=== PATIENT | male | born 1965 | race Caucasian/White ===

== ENCOUNTER 2024-11-18 08:53 | Emergency (ER) | payer BC, SELFPAY ==
[2024-11-18 08:59] VITALS: BP 170/90
[2024-11-18 09:29] VITALS: BMI 32.1
--- NOTE | 2024-11-18 09:38 | ED.GENMED ---
History of Present Illness
General
Chief Complaint: Fever
Source: patient and spouse
Exam Limitations: none
Time Seen by Provider: 11/18/24 09:25
Nursing documentation reviewed up to this point in time: agreed with
History of Present Illness
History of Present Illness:
59-year-old male past medical history of hypertension presenting to the emergency department today with concerns of sore throat productive cough upper respiratory symptoms as well as fever over the past 24 hours or so. COVID test negative at home.
Denies any specific chest pain but has been feeling very short of breath and very weak and tired. Denies any nausea vomiting.
Past History
Past History
ED Past Medical History: None
ED Past Surgical History: None
Social History
Tobacco: Non-smoker
Living: with family
Employment: Employed
Review of Systems
Review of Systems
Allergies reviewed?: Yes
All Other Systems: ROS reviewed and negative except as documented in HPI and ROS
Phy Exam
Physical Exam
Physical Exam:
GENERAL: Alert , in no apparent distress
EYE: pupils equal and reactive
NECK: Supple, no significant adenopathy.
ENT: o/p clr, mmm.
CARDIAC: Regular rate and rhythm .
LUNGS: Rhonchi to the left lungs right sided clear
ABDOMEN: Soft, without focal tenderness, no r/g, no cvat
NEUROLOGICAL: Alert and oriented, no focal neuro deficits
SKIN: Warm and dry, skin intact.
MUSCULOSKELETAL: No edema, well perfused.
PSYCH: Normal and appropriate interaction.
Sepsis
Sepsis Screening
Sepsis Assessment: Sepsis Ruled Out
Sepsis Screen
Sepsis Screen: Sepsis Ruled Out
Date: 11/18/24
Time: 13:45
Course
Orders/Labs/Results
Orders:
Orders
11/18/24 09:20
IV Insert/Care/Rem.- Treatment PRN
CR Chest - 2 Views Urgent
Comment:
Reason For Exam: suspected infection
11/18/24 09:36
COVID-19 Antigen Urgent
Source: Nasal Swab
Complete Blood Count/With Diff Urgent
Comprehensive Metabolic Panel Urgent
Lactic Acid Q4H
Comment: ON ICE, CANCEL 2ND ORDER IF FIRST LACTIC ACID LEVEL <2
Influenza A+B Rapid Molecular Urgent
JAMIE Source: Nasal Swab
Specimen Description:
Acetaminophen [Tylenol] 1,000 mg PO NOW STA
11/18/24 10:04
Azithromycin 500 mg/250 ml [Zithromax Infusion] 500 mg in 250 ml IV NOW
CefTRIAXone [Rocephin] 1,000 mg IV NOW STA
Oseltamivir Phosphate [Tamiflu] 75 mg PO NOW STA
11/18/24 11:30
Ketorolac [Toradol] 15 mg .ROUTE .STK-MED ONE
11/18/24 11:38
Ketorolac [Toradol] 15 mg IV NOW STA
Abnormal Lab Results
11/18/24
09:36
RBC 4.61 L 10^6/uL
(4.70-6.10)
Hct 38.1 L %
(39.0-52.0)
Plt Count 110 L 10^3/uL
(130-400)
MPV 11.0 H fL
(7.4-10.4)
Absolute Lymphs (auto) 0.2 L 10^3/uL
(1.2-3.4)
Neutrophils % 87.6 H %
(42.2-75.2)
Lymphocytes % 3.2 L %
(20.5-51.1)
Sodium 133 L mmol/L
(135-145)
Chloride 97 L mmol/L
(98-107)
Glucose 130 H mg/dl
(70-99)
11/18/24 09:36
11/18/24 09:36
Vital Signs
Initial and Last Documented VS:
Initial Vital Signs
Temp Pulse Resp BP Pulse Ox
103 F H 103 18 170/90 94
11/18/24 08:59 11/18/24 08:59 11/18/24 08:59 11/18/24 08:59 11/18/24 08:59
Last Documented Vital Signs
Temp Pulse Resp BP Pulse Ox
99.9 F 72 26 128/73 92
11/18/24 10:40 11/18/24 13:19 11/18/24 09:45 11/18/24 13:00 11/18/24 13:15
MDM/Problems Addressed
MDM/Problems Addressed:
59-year-old male presenting to the emergency department today with concerns of upper respiratory symptoms over the past 24 hours but worsening shortness of breath and fatigue today. Upon arrival here febrile to 103 pulse ox in the low 90s during my
assessment vaguely tachycardic. Slightly hypertensive. Will patient's examination left lung cesar with rhonchi and rales potentially consistent with pneumonia. Patient started on IV antibiotics ceftriaxone as well as azithromycin. Was given
Tylenol with improvement of patient's heart rate and temperature. No significant white count does have a bit of a left shift. Otherwise labs unremarkable. Patient still appears very fatigued and has significant shortness of breath with any
exertion here. Plan to admit for further monitoring. Patient was positive for flu and started on Tamiflu as well.
*Critical Care Note
Total Time (30-74mins, 75-104mins- exclusive of procedures): Not Applicable
Update Note
Update Note:
13:40: Patient assessed by admitting team. at this point. Patient has had significant improvement over the few hours fr admission concerning this plan to discharge home with strict return precautions. Will be given continue Tamiflu and sinus
parameter antibiotics.
ED Attending Note
-
Portions of this chart may have been created with voice recognition software.� Occasional wrong word or��sound alike� substitutions may have occurred due to the inherent limitations of voice recognition software.
Discharge Plan
Departure
Patient Disposition: Home (Routine Discharge)
Date of Disposition: 11/18/24
Time of Disposition: 11:20
Admit to: Telemetry
Admit to doctor: Bejarano
Patient with high blood pressure during this ER visit?: No
Condition: Good
Covid-19: Not Applicable
Discharge Problem:
Influenza, Pneumonia
Instructions: Pneumonia in adults, Flu
Prescriptions:
New
azithromycin 500 mg tablet
500 mg PO DAILY 2 Days Qty: 2 0RF
cefpodoxime 200 mg tablet
200 mg PO BID 7 Days Qty: 14 0RF
oseltamivir [Tamiflu] 75 mg capsule
75 mg PO BID 5 Days Qty: 10 0RF
No Action
irbesartan 300 mg Tablet
300 mg PO DAILY
cyanocobalamin (vitamin B-12) 1,000 mcg Tablet
1,000 mcg PO DAILY
Theragen Tablet
1 tab PO DAILY
ibuprofen [Advil] 200 mg Tablet
400 mg PO DAILYPRN PRN (Reason: fever)
levofloxacin 500 mg Tablet
500 mg PO DAILY
neomycin-polymyxin B-dexameth 3.5 mg/g-10,000 unit/g-0.1 % ointment
1 applic LEFT EYE BID
Referrals:
Gamal Montemayor DO [Family Provider] -
Activity Restrictions/Additional Instructions:
You came to the emergency department today with concerns of cough and shortness of breath. Here you are found to have influenza and possible secondary pneumonia. Please take the prescribed medications and follow-up closely with the primary care
doctor. Return to the emergency department any worsening, new or concerning symptoms.
Interventions
Interventions:
*Risk Screen - Suicide Last Done: 11/18/24 09:01
*General Assessment Last Done: 11/18/24 09:29
*Neglect/Abuse Screening Last Done: 11/18/24 09:01
ED- Fall Risk Assessment Last Done: 11/18/24 09:29
*ED COVID-19 Vaccine History Last Done: 11/18/24 09:29
ED- Neurological Assessment Last Done: 11/18/24 09:29
ED-Skin Assessment Last Done: 11/18/24 09:29
Discharge Date and Time
Print Language: BRAZILIAN
[2024-11-18] MEDS: TYLENOL 1000 MG PO (09:41)
[2024-11-18 09:54] LABS: % Basophils 0.3 % (0-2); % Eosinophils 0.2 % (0-6); % Immature Granulocytes 0.3 % (0-0.5); % Lymphocytes 3.2 % (20.5-51.1); % Monocytes 8.4 % (1.7-9.3); % Neutrophils 87.6 % (42.2-75.2); Absolute Lymphocytes 0.2 10^3/uL (1.2-3.4); Absolute Monocytes 0.5 10^3/uL (0.1-0.6); Absolute Neutrophils 5.5 10^3/uL (1.4-6.5); Hematocrit 38.1 % (39.0-52.0); Hemoglobin 13.3 g/dL (13.0-18.0); Mean Corp Hgb Conc. 34.9 g/dL (33.0-37.0); Mean Corpuscular Hgb 28.9 pg (27.0-31.0); Mean Corpuscular Volume 82.6 fL (80.0-94.0); Nucleated Red Blood Cells % 0 % (-); Platelet Count 110 10^3/uL (130-400); Red Blood Cell Count 4.61 10^6/uL (4.70-6.10); White Blood Cell Count 6.2 10^3/uL (4.8-10.8)
[2024-11-18 10:01] LABS: Lactic Acid 0.9 mmol/L (0.7-2.0)
[2024-11-18 10:04] LABS: ALT (SGPT) 33 U/L (0-50); AST (SGOT) 27 U/L (17-59); Albumin 4.3 g/dl (3.5-5.0); Alkaline Phosphatase 68 U/L (38-126); Blood Urea Nitrogen 19 mg/dl (9-20); COVID-19 Antigen Negative (Negative); Calcium 8.9 mg/dl (8.4-10.2); Carbon Dioxide 27 mmol/L (22-30); Chloride 97 mmol/L (98-107); Estimated Creatinine Clearance 93 ml/min; Glucose 130 mg/dl (70-99); Potassium 3.8 mmol/L (3.5-5.1); Sodium 133 mmol/L (135-145); Total Bilirubin 0.6 mg/dl (0.2-1.3); Total Protein 6.4 g/dl (6.3-8.2); eGFR > 60.00
[2024-11-18] MEDS: TAMIFLU 75 MG PO (10:33)
[2024-11-18] MEDS: ROCEPHIN 1000 MG IV (10:34)
[2024-11-18] MEDS: ZITHROMAX INFUSION 250 IV (10:34)
[2024-11-18 10:35] VITALS: BP 152/74
[2024-11-18 11:00] VITALS: BP 143/74
[2024-11-18] MEDS: TORADOL 15 MG IV (11:38)
[2024-11-18 12:00] VITALS: BP 122/95
[2024-11-18 12:22] VITALS: BP 137/77
[2024-11-18 13:00] VITALS: BP 128/73
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
== END 2024-11-18 14:09 | disposition home or self-care (01) ==
LOC: EMR 08:53
PROVIDERS: EMERGENCY PHYSICIAN Student in an Organized Health Care Education/Training Program; FAMILY PHYSICIAN Internal Medicine Cardiovascular Disease; OTHER PHYSICIAN Family Medicine
DX: J11.00 Influenza due to unidentified influenza virus with unspecified type of pneumonia (principal); Z11.52 Encounter for screening for COVID-19
CPT/HCPCS: 99284; 96365; 96375 ×2; 71046; 80053; 83605; 85025; 87502; 87811

== ENCOUNTER → 2025-04-01 09:37 | Outpatient (REF) | payer BC, SELFPAY | LOC: RAD 09:37 | PROVIDERS: ATTENDING PHYSICIAN Orthopaedic Surgery; FAMILY PHYSICIAN Family Medicine | DX: S05.50XA Penetrating wound with foreign body of unspecified eyeball, initial encounter (principal) | CPT/HCPCS: 70030 ==

== ENCOUNTER 2025-11-16 13:48 | Emergency (ER) | payer OTHER, SELFPAY ==
[2025-11-16 14:07] VITALS: BP 148/84
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
== END 2025-11-16 16:51 | disposition home or self-care (01) ==
LOC: EMR 13:48
PROVIDERS: EMERGENCY PHYSICIAN Emergency Medicine; FAMILY PHYSICIAN Family Medicine
DX: M54.2 Cervicalgia (principal); M54.50 Low back pain, unspecified; V53.5XXA Driver of pick-up truck or van injured in collision with car, pick-up truck or van in traffic accident, initial encounter; Y92.410 Unspecified street and highway as the place of occurrence of the external cause; I10 Essential (primary) hypertension
CPT/HCPCS: 99284; 70450; 72125; 93005